=== PATIENT | female | born 1955 | race Caucasian/White ===

== ENCOUNTER 2018-07-08 17:47 | Emergency (ER) | payer OTHER ==
[2018-07-08 18:22] VITALS: BP 151/75
--- NOTE | 2018-07-08 18:42 | UC ---
Complaint Female HPI - HPI Summary HPI Summary: Regular patient of [facility]---called them today due to hematuria---Dr. Rodriguez asked her to get a urine culture started at Urgent care and then start macrobid--patient states she has been drinking significant amounts of water today the hematuria appears to have resolved some low back pain but no flank pain - History Of Current Complaint Chief Complaint: UCGU Stated Complaint: URINARY COMPLAINT Time Seen by Provider: 07/08/18 18:25 Hx Obtained From: Patient ?: No Onset/Duration: Sudden Onset, Lasting Days - 1, Still Present Timing: Constant Pain Intensity: 2 Pain Scale Used: 0-10 Numeric Character: Dull Aggravating Factor(s): Urination Alleviating Factor(s): Nothing Associated Signs And Symptoms: Positive: Back Pain - low back pain - Allergies/Home Medications Allergies/Adverse Reactions: Allergies Allergy/AdvReac Type Severity Reaction Status Date / Time No Known Allergies Allergy Verified 07/08/18 18:22 PMH/Surg Hx/FS Hx/Imm Hx Previously Healthy: Yes - Surgical History Surgical History: Yes Surgery Procedure, Year, and Place: 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, hernia repair 1999 - Family History Known Family History: Positive: None - Social History Occupation: Employed Full-time Lives: With Family Alcohol Use: None Substance Use Type: None Smoking Status (MU): Never Smoked Tobacco Review of Systems All Other Systems Reviewed And Are Negative: Yes Constitutional: Positive: Negative Skin: Positive: Negative Eyes: Positive: Negative ENT: Positive: Negative Respiratory: Positive: Negative Cardiovascular: Positive: Negative Gastrointestinal: Positive: Negative Genitourinary: Positive: Dysuria, Hematuria, Urgency Motor: Positive: Negative Neurovascular: Positive: Negative Musculoskeletal: Positive: Negative Neurological: Positive: Negative Psychological: Positive: Negative Is Patient Immunocompromised?: No Physical Exam Triage Information Reviewed: Yes Appearance: Well-Appearing, No Pain Distress, Well-Nourished Vital Signs: Initial Vital Signs Temp 97.8 F 07/08/18 18:15 Pulse 73 07/08/18 18:15 Resp 16 07/08/18 18:15 BP 151/75 07/08/18 18:15 Pulse Ox 100 07/08/18 18:15 Vital Signs Reviewed: Yes Eye Exam: Normal Eyes: Positive: Conjunctiva Clear ENT Exam: Normal ENT: Positive: Normal ENT inspection, Hearing grossly normal. Negative: Trismus , Muffled voice, Hoarse voice Dental Exam: Normal Neck exam: Normal Neck: Positive: Supple, Nontender, No Lymphadenopathy Respiratory Exam: Normal Respiratory: Positive: Chest non-tender, No respiratory distress, No accessory muscle use Cardiovascular Exam: Normal Cardiovascular: Positive: RRR, Brisk Capillary Refill Musculoskeletal Exam: Normal Musculoskeletal: Positive: Strength Intact, ROM Intact, No Edema Neurological Exam: Normal Neurological: Positive: Alert, Muscle Tone Normal Psychological Exam: Normal Skin Exam: Normal Diagnostics - Laboratory Diagnostic Studies Completed/Ordered: ua-+1 blood and +1 leukesterace Complaint Female Dx - Course Course Of Treatment: culture urine start macrobid per Dr. Rodriguez, increase fluids , follow blood pressure with pcp---return as needed - Differential Dx/Diagnosis Provider Diagnoses: UTI, elevated blood pressure without history of hypertension Discharge - Sign-Out/Discharge Documenting (check all that apply): Patient Departure All imaging exams completed and their final reports reviewed: No Studies - Discharge Plan Condition: Stable Disposition: HOME Patient Education Materials: Urinary Tract Infection in Women (ED), Hypertension (ED) Referrals: Mian Benites MD [Primary Care Provider] - 1 Week Guy Rodriguez MD [Medical Doctor] - (as planned ) Additional Instructions: Ok to start your Macrobid-we are sending your urine to the hospital lab for culture - Billing Disposition and Condition Condition: STABLE Disposition: Home
--- NOTE | 2018-07-10 17:28 | UC ---
- Progress Note Progress Note: Prelim urine culture with Proteus Mirabilis. Macrobid generally has poor action against this organism, but pt regularly sees Dr. Cedeno - whom apparently advised her to be on Macrobid. Will await final culture results before changing antibiotic. Discharge - Sign-Out/Discharge Documenting (check all that apply): Post-Discharge Follow Up All imaging exams completed and their final reports reviewed: No Studies - Discharge Plan Condition: Stable Disposition: HOME Patient Education Materials: Urinary Tract Infection in Women (ED), Hypertension (ED) Referrals: Mian Benites MD [Primary Care Provider] - 1 Week Guy Rodriguez MD [Medical Doctor] - (as planned ) Additional Instructions: Ok to start your Macrobid-we are sending your urine to the hospital lab for culture - Billing Disposition and Condition Condition: STABLE Disposition: Home
--- NOTE | 2018-07-11 18:19 | UC ---
- Progress Note Progress Note: 07/11/2018 Urine culture positive for Proteus Mirabilis Pt Rx Macrobid. Sensitivity reports shows resistance to Macrobid PO Please inform patient of results and advised a Rx For Bactrim was sent to pharmacy Thank you Miriam Boggs PA-C Discharge - Sign-Out/Discharge Documenting (check all that apply): Patient Departure - D/C home All imaging exams completed and their final reports reviewed: No Studies - Discharge Plan Condition: Stable Disposition: HOME Prescriptions: Sulfamethox/Trimethoprim DS* [Bactrim DS 800/160 TAB*] 1 tab PO BID #14 tab Patient Education Materials: Urinary Tract Infection in Women (ED), Hypertension (ED) Referrals: Mian Benites MD [Primary Care Provider] - 1 Week Guy Rodriguez MD [Medical Doctor] - (as planned ) Additional Instructions: Ok to start your Macrobid-we are sending your urine to the hospital lab for culture - Billing Disposition and Condition Condition: STABLE Disposition: Home
== END 2018-07-08 18:50 | disposition home or self-care (01) ==
LOC: UCEAST 17:47
DX: N39.0 Urinary tract infection, site not specified (principal); R03.0 Elevated blood-pressure reading, without diagnosis of hypertension
CPT/HCPCS: 81003; 87077; 87086; 87186; 99211; G0463